=== PATIENT | male | born 1945 | race Caucasian/White ===

== ENCOUNTER 2023-01-12 17:34 | Emergency (ER) | payer MEDICARE, OTHER | END 2023-01-12 19:50 | disposition home or self-care (01) | LOC: JP.ED 17:34 | DX: S91.332A Puncture wound without foreign body, left foot, initial encounter (principal); Z79.82 Long term (current) use of aspirin; W26.8XXA Contact with other sharp object(s), not elsewhere classified, initial encounter | CPT/HCPCS: 99282 ==